=== PATIENT | female | born 1990 | race African-American/Black ===

== ENCOUNTER 2017-12-21 14:21 | Emergency (ER) | payer MEDICAID ==
--- NOTE | 2017-12-21 15:25 | ER Document Report ---
ED Medical Screen (RME) - General Chief Complaint: Vaginal Bleeding Stated Complaint: VAGINAL BLEEDING Time Seen by Provider: 12/21/17 15:09 Mode of Arrival: Ambulatory Information source: Patient Notes: 27-year-old female presents emergency department with 4-day history of suprapubic cramping. She states that she is having increased urgency, increased frequency. Patient denies any dysuria. She states that she is starting to have some lower back pain. Patient is also concerned she may be . Patient states that she had vaginal bleeding last week. She states that this was an abnormal time in her cycle. Patient denies any nausea, vomiting, diarrhea, constipation, fever, chills. I have greeted and performed a rapid initial assessment of this patient. A comprehensive ED assessment and evaluation of the patient, analysis of test results and completion of the medical decision making process will be conducted by additional ED providers. PHYSICAL EXAMINATION: GENERAL: Well-appearing, well-nourished and in no acute distress. HEAD: Atraumatic, normocephalic. EYES: Pupils equal round extraocular movements intact, conjunctiva are normal. ENT: Nares patent NECK: Normal range of motion LUNGS: No respiratory distress Musculoskeletal: Normal range of motion NEUROLOGICAL: Normal speech, normal gait. PSYCH: Normal mood, normal affect. SKIN: Warm, Dry, normal turgor, no rashes or lesions noted. TRAVEL OUTSIDE OF THE [place] IN LAST 30 DAYS: No - Related Data Allergies/Adverse Reactions: No Known Allergies Allergy (Unverified 12/21/17 14:25) Physical Exam - Vital signs Vitals: Temp Pulse Resp BP Pulse Ox 99.2 F 89 16 103/74 100 12/21/17 14:27 12/21/17 14:27 12/21/17 14:27 12/21/17 14:27 12/21/17 14:27 Course - Vital Signs Vital signs: Temp Pulse Resp BP Pulse Ox 99.2 F 89 16 103/74 100 12/21/17 14:27 12/21/17 14:27 12/21/17 14:27 12/21/17 14:27 12/21/17 14:27
[2017-12-21 15:45] LABS: APPEARANCE,URINE SLIGHTLY-CLOUDY; BILIRUBIN,URINE NEGATIVE (NEGATIVE); COLOR,URINE YELLOW; GLUCOSE, URINE NEGATIVE (NEGATIVE); KETONES,URINE NEGATIVE (NEGATIVE); LEUKOCYTE ESTERASE,URINE NEGATIVE (NEGATIVE); NITRITE,URINE NEGATIVE (NEGATIVE); PROTEIN,URINE NEGATIVE (NEGATIVE); URINE SPECIFIC GRAVITY 1.027
--- NOTE | 2017-12-21 15:54 | ER Document Report ---
ED General - General Chief Complaint: Vaginal Bleeding Stated Complaint: VAGINAL BLEEDING Time Seen by Provider: 12/21/17 15:09 Mode of Arrival: Ambulatory TRAVEL OUTSIDE OF THE [place] IN LAST 30 DAYS: No - HPI Notes: Patient is a 27-year-old female with prev 10 years ago who presents to the ED complaining of an episode of vaginal bleeding for 3 days last week and having lower pelvic discomfort intermittently with nausea no vomiting over the last several days as well. Denies any drug allergies. Patient states that she has had some increase in urinary frequency, but no discomfort. She has not had any other vaginal odor or discharge and has no concerns of STD or STI's. Patient is not sure if she is . Denies any headache, fever, URI, sore throat, chest pain, palpitations, syncope, cough, shortness of breath, wheeze, dyspnea, current nausea/vomiting/diarrhea, urinary retention, dysuria, hematuria, back pain, loss of control of bowel or bladder, numbness/tingling, saddle anesthesia, muscle paralysis/weakness, or rash. - Related Data Allergies/Adverse Reactions: No Known Allergies Allergy (Unverified 12/21/17 14:25) Past Medical History - General Information source: Patient - Social History Smoking Status: Unknown if Ever Smoked Family History: Reviewed & Not Pertinent Patient has suicidal ideation: No Patient has homicidal ideation: No Renal/ Medical History: Denies: Hx Peritoneal Dialysis Review of Systems - Review of Systems -: Yes All other systems reviewed and negative Physical Exam - Vital signs Vitals: Temp Pulse Resp BP Pulse Ox 99.2 F 89 16 103/74 100 12/21/17 14:27 12/21/17 14:27 12/21/17 14:27 12/21/17 14:27 12/21/17 14:27 - Notes Notes: PHYSICAL EXAMINATION: GENERAL: Well-appearing, well-nourished and in no acute distress. LUNGS: Breath sounds clear to auscultation bilaterally and equal. No wheezes rales or rhonchi. HEART: Regular rate and rhythm without murmurs, rubs, gallops. ABDOMEN: Soft, nondistended abdomen. No guarding, no rebound. No masses appreciated. Normal bowel sounds present. No CVA tenderness bilaterally. + mild lower pelvic tenderness to palp. Musculoskeletal: FROM to passive/active. Strength 5+/5. Extremities: No cyanosis, clubbing, or edema b/l. Peripheral pulses 2+. Capillary refill less than 3 seconds. NEUROLOGICAL: Normal speech, normal gait. PSYCH: Normal mood, normal affect. SKIN: Warm, Dry, normal turgor, no rashes or lesions noted. Course - Re-evaluation Re-evalutation: 12/21/17 15:55 Urine HCG + We will obtain further labs and imaging to further evaluate. 12/21/17 17:47 Patient is an afebrile, well-hydrated, 27-year-old female who presents to the ED with an intrauterine . Vitals are acceptable without any significant tachycardia, tachypnea, or hypoxia. PE is otherwise unremarkable. CBC, CMP unremarkable for acute pathology. UA unremarkable. HCG appropriate. TVUS shows IUP approx 6wk 6day with HR of 141. No subchorionic hemorrhage with closed cervix. Patient is nontoxic-appearing is tolerating p.o. without any difficulties. No other labs or imaging warranted at this time based on H&P. Low suspicion/risk for acute appendicitis, bowel obstruction, acute cholecystitis, acute cholangitis, perforated diverticulitis, incarcerated hernia , pancreatitis, perforated ulcer, peritonitis, sepsis, pelvic inflammatory disease, ectopic , tubo-ovarian abscess, ovarian torsion, or other systemic emergent condition at this time. Patient is aware that her condition can change from initial presentation and she needs to monitor symptoms closely and seek medical attention if any acute changes. Rx for zofran. Conservative measures otherwise for symptoms. Recheck with your PCM/OBGYN in 3-5 days. Return to the ED with any worsening/concerning symptoms otherwise as reviewed in discharge. Patient is in agreement. - Vital Signs Vital signs: Temp Pulse Resp BP Pulse Ox 99.2 F 89 16 103/74 100 12/21/17 14:27 12/21/17 14:27 12/21/17 14:27 12/21/17 14:27 12/21/17 14:27 - Laboratory Result Diagrams: 12/21/17 15:57 12/21/17 15:57 Laboratory results interpreted by me: 12/21/17 12/21/17 12/21/17 15:28 15:57 15:57 Hct 35.0 L RDW 14.4 H Beta HCG, Quant 76304.00 H Urine Urobilinogen 2.0 H Urine HCG, Qual POSITIVE H Discharge - Discharge Clinical Impression: Early stage of Condition: Stable Disposition: HOME, SELF-CARE Instructions: ([facility]) Additional Instructions: Maintain fluid intake Proper hygienic technique Keep the skin clean Tylenol as needed F/u with your PCM/OBGYN in 3-5 days for a recheck Return to the ED with any development of MITCHELL/fever, trouble with vision, eye redness, worsening pain, urethral discharge, urinary retention, blood in the urine, flank pain, abdominal pain, n/v, Chest Pain, shortness of breath, joint pains, trouble breathing, or any other worsening/concerning symptoms as needed otherwise. Prescriptions: Ondansetron [Zofran Odt 4 mg Tablet] 1 - 2 tab PO Q4H PRN #15 tab.rapdis PRN Reason: For Nausea/Vomiting Referrals: [facility] [Provider Group] - Follow up in 3-5 days
[2017-12-21 16:09] LABS: ABSOLUTE EOSINOPHILS # (AUTO) 0.1 10^3/uL (0.0-0.6); ABSOLUTE LYMPHOCYTES (AUTO) 2.2 10^3/uL (0.5-4.7); ABSOLUTE MONOCYTES (AUTO) 0.3 10^3/uL (0.1-1.4); ABSOLUTE NEUT (AUTO) 2.8 10^3/uL (1.7-8.2); BASOPHILS % (AUTO) 0.3 % (0-2); EOSINOPHILS % (AUTO) 1.6 % (0-6); LYMPHOCYTES % (AUTO) 40.2 % (13-45); MEAN CORPUSCULAR HEMOGLOBIN 29.2 pg (27.0-33.4); MEAN CORPUSCULAR HGB CONC 34.3 g/dL (32.0-36.0); MEAN CORPUSCULAR VOLUME 85 fl (80-97); PLATELET COUNT 236 10^3/uL (150-450); RED BLOOD COUNT 4.11 10^6/uL (3.72-5.28); RED CELL DISTRIBUTION WIDTH 14.4 % (11.5-14.0); SEGMENTED NEUTROPHILS % (AUTO) 51.9 % (42-78); TOTAL CELLS COUNTED % (AUTO) 100 %; WHITE BLOOD COUNT 5.5 10^3/uL (4.0-10.5)
[2017-12-21 16:34] LABS: ALANINE AMINOTRANSFERASE 16 U/L (9-52); ALBUMIN 4.2 g/dL (3.5-5.0); ALKALINE PHOSPHATASE 49 U/L (38-126); ANION GAP 13 (5-19); ASPARTATE AMINO TRANSFERASE 16 U/L (14-36); BILIRUBIN,DIRECT 0.1 mg/dL (0.0-0.4); BILIRUBIN,TOTAL 0.4 mg/dL (0.2-1.3); BLOOD UREA NITROGEN 13 mg/dL (7-20); CALCIUM 9.6 mg/dL (8.4-10.2); CARBON DIOXIDE 23 mmol/L (22-30); CHLORIDE 104 mmol/L (98-107); GLUCOSE 76 mg/dL (75-110); POTASSIUM 4.1 mmol/L (3.6-5.0); SODIUM 139.9 mmol/L (137-145)
--- NOTE | 2017-12-21 17:21 | RADIOLOGY REPORT (SQ) ---
EXAM DESCRIPTION: U/S OB TRANSVAG W/DOPPLER COMPLETED DATE/TIME: 12/21/2017 5:04 pm REASON FOR STUDY: early in early COMPARISON: None. TECHNIQUE: Transvaginal static and realtime grayscale images acquired of the pelvis. Additional chloe cted spectral and color Doppler images recorded. All images stored on PACs. bHCG: Pending. CLINICAL DATES: Not Available. LIMITATIONS: None. FINDINGS: FETUS: Single Living intrauterine . Yolk sac present. ULTRASOUND EGA: 6 weeks 6 days ULTRASOUND JABIER: 08/11/2018 EFW: Not applicable less than 20 weeks. CRL: 9 mm FHR: 141 beats per minute. SURVEY: No visualized anomalies. AMNIOTIC FLUID: Adequate amount. PLACENTA: Not yet developed due to early gestation. SUBCHORIONIC BLEED: No. SIZE OF BLEED: Not applicable. UTERUS: No masses. No anomalies. CERVICAL LENGTH:Closed. RIGHT ADNEXA: 1.5 cm luteal cyst. Normal vascular flow. No adnexal free fluid. No adnexal masses. LEFT ADNEXA: Ovary not identified due to poor acoustical window. No adnexal free fluid. No adnexal masses. FREE FLUID: None. OTHER: No other significant finding. IMPRESSION: LIVING INTRAUTERINE . EGA 6 weeks 6 days Trimester of : First - 0 to 13 weeks. TECHNICAL DOCUMENTATION: JOB ID: [id number] [employer]- All Rights Reserved Reading location - IP/workstation name: [email or web address]
[2017-12-21 18:14] VITALS: BP 108/63
== END 2017-12-21 18:10 | disposition home or self-care (01) ==
LOC: ER 14:21
DX: O26.891 Other specified pregnancy related conditions, first trimester (principal); R10.2 Pelvic and perineal pain; R11.0 Nausea; R35.0 Frequency of micturition; Z3A.01 Less than 8 weeks gestation of pregnancy
CPT/HCPCS: 36415; 76817; 80053; 81001; 81025; 84702; 85025; 86900; 86901; 93976; 99284

== ENCOUNTER 2018-05-06 18:06 | Outpatient (CLI) | payer MEDICAID ==
[2018-05-06 18:58] LABS: APPEARANCE,URINE CLEAR; BILIRUBIN,URINE NEGATIVE (NEGATIVE); COLOR,URINE STRAW; GLUCOSE, URINE NEGATIVE (NEGATIVE); KETONES,URINE NEGATIVE (NEGATIVE); LEUKOCYTE ESTERASE,URINE NEGATIVE (NEGATIVE); NITRITE,URINE NEGATIVE (NEGATIVE); PROTEIN,URINE NEGATIVE (NEGATIVE); URINE SPECIFIC GRAVITY 1.002; UROBILINOGEN,URINE NEGATIVE mg/dL (<2.0)
[2018-05-06 20:45] LABS: URINE AMPHETAMINES SCREEN NEGATIVE; URINE BARBITURATES SCREEN NEGATIVE; URINE BENZODIAZEPINES SCREEN NEGATIVE; URINE COCAINE SCREEN NEGATIVE; URINE MARIJUANA (THC) SCREEN NEGATIVE; URINE METHADONE SCREEN NEGATIVE; URINE PHENCYCLIDINE SCREEN NEGATIVE
== END 2018-05-06 19:06 | disposition home or self-care (01) ==
LOC: LC 18:06
PROVIDERS: ATTEND Obstetrics & Gynecology
PROC: 4A1HXCZ Monitoring of Products of Conception, Cardiac Rate, External Approach (ICD-10-PCS; principal; 2018-05-06)
DX: O47.02 False labor before 37 completed weeks of gestation, second trimester (principal); Z3A.26 26 weeks gestation of pregnancy
CPT/HCPCS: 80307; 81001

== ENCOUNTER 2018-08-07 05:40 | Inpatient (IN) | payer MEDICAID ==
[2018-08-07] MEDS ORDERED: CEFAZOLIN 2 GM/D5W RTU 2 GM/50 ML RTUPB IV ONE (06:15)
[2018-08-07] MEDS ORDERED: RINGERS SOLUTION,LACTATED 1,000 ML IV ONE (06:15)
[2018-08-07 06:22] LABS: ABSOLUTE EOSINOPHILS # (AUTO) 0.1 10^3/uL (0.0-0.6); ABSOLUTE LYMPHOCYTES (AUTO) 2.2 10^3/uL (0.5-4.7); ABSOLUTE MONOCYTES (AUTO) 0.5 10^3/uL (0.1-1.4); ABSOLUTE NEUT (AUTO) 5.6 10^3/uL (1.7-8.2); BASOPHILS % (AUTO) 0.2 % (0-2); EOSINOPHILS % (AUTO) 0.9 % (0-6); HEMATOCRIT 32.1 % (36.0-47.0); HEMOGLOBIN 10.9 g/dL (12.0-15.5); LYMPHOCYTES % (AUTO) 26.5 % (13-45); MEAN CORPUSCULAR HEMOGLOBIN 28.6 pg (27.0-33.4); MEAN CORPUSCULAR VOLUME 84 fl (80-97); MONOCYTES % (AUTO) 5.7 % (3-13); PLATELET COUNT 188 10^3/uL (150-450); RED BLOOD COUNT 3.83 10^6/uL (3.72-5.28); RED CELL DISTRIBUTION WIDTH 14.9 % (11.5-14.0); SEGMENTED NEUTROPHILS % (AUTO) 66.7 % (42-78); TOTAL CELLS COUNTED % (AUTO) 100 %; WHITE BLOOD COUNT 8.5 10^3/uL (4.0-10.5)
[2018-08-07] MEDS: RINGERS SOLUTION,LACTATED 1,000 ML IV PRN ×2 (06:44→11:59)
[2018-08-07 07:04] LABS: APPEARANCE,URINE SLIGHTLY-CLOUDY; BILIRUBIN,URINE NEGATIVE (NEGATIVE); COLOR,URINE YELLOW; GLUCOSE, URINE NEGATIVE (NEGATIVE); KETONES,URINE NEGATIVE (NEGATIVE); LEUKOCYTE ESTERASE,URINE NEGATIVE (NEGATIVE); NITRITE,URINE NEGATIVE (NEGATIVE); PROTEIN,URINE 30 mg/dL (NEGATIVE); URINE SPECIFIC GRAVITY 1.023
[2018-08-07 07:13] LABS: URINE AMPHETAMINES SCREEN NEGATIVE; URINE BARBITURATES SCREEN NEGATIVE; URINE BENZODIAZEPINES SCREEN NEGATIVE; URINE COCAINE SCREEN NEGATIVE; URINE MARIJUANA (THC) SCREEN NEGATIVE; URINE METHADONE SCREEN NEGATIVE; URINE PHENCYCLIDINE SCREEN NEGATIVE
[2018-08-07] MEDS ORDERED: MIDAZOLAM 2 MG/2 ML INJ ONE (07:51)
[2018-08-07] MEDS ORDERED: OXYTOCIN 10 UNIT/ML VIAL ONE ×2 (07:51→10:39)
[2018-08-07] MEDS ORDERED: ACETAMINOPHEN 1,000 MG/100 ML RTUPB IV ONE (07:51)
[2018-08-07] MEDS ORDERED: FENTANYL CITRATE INJ/PF 100 MCG/2 ML AMPUL ONE (07:51)
[2018-08-07] MEDS ORDERED: ONDANSETRON HCL INJ/PF 4 MG/2 ML SDV ONE (07:51)
[2018-08-07] MEDS ORDERED: EPHEDRINE SULFATE INJ 50 MG/1 ML AMPULE ONE (07:51)
[2018-08-07] MEDS ORDERED: OXYTOCIN/NORMAL SALINE 20 UNIT/1,000 ML RTUINJ ONE ×2 (07:51→10:39)
[2018-08-07] MEDS ORDERED: KETOROLAC TROMETHAMINE INJ/PF 30 MG/1 ML SDV ONE (07:51)
[2018-08-07] MEDS ORDERED: DIPHENHYDRAMINE HCL 50 MG/ML VIAL IV PRN (08:35)
[2018-08-07] MEDS ORDERED: MEPERIDINE HCL/PF INJ 25 MG/1 ML DISP.SYRIN IV PRN (08:35)
[2018-08-07] MEDS ORDERED: PROMETHAZINE HCL INJ 25 MG/1 ML VIAL IV PRN ×3 (08:35→09:24)
[2018-08-07] MEDS ORDERED: ONDANSETRON HCL INJ/PF 4 MG/2 ML SDV IV PRN (08:35)
[2018-08-07] MEDS ORDERED: OXYCODONE-ACETAMINOPHEN 5-325 MG TABLET PO PRN ×3 (08:35→09:24)
[2018-08-07] MEDS ORDERED: FENTANYL CITRATE INJ/PF 100 MCG/2 ML AMPUL IV PRN ×3 (08:35)
[2018-08-07] MEDS ORDERED: HYDROMORPHONE HCL INJ/PF 2 MG/ML AMPULE IV PRN (09:24)
[2018-08-07] MEDS ORDERED: ACETAMINOPHEN 1,000 MG/100 ML RTUPB IV PRN (09:24)
[2018-08-07] MEDS ORDERED: MEASLES,MUMPS&RUBELLA VACC/PF 0.5 ML VIAL SUBCUT PRN (09:24)
[2018-08-07] MEDS ORDERED: OXYTOCIN/NORMAL SALINE 20 UNIT/1,000 ML RTUINJ IV PRN (09:24)
[2018-08-07] MEDS ORDERED: DIPH/PERTUSS(ACELL)/TETANUS VAC/PF 0.5 ML SYR (>=10YO) IM PRN (09:24)
[2018-08-07] MEDS ORDERED: ACETAMINOPHEN 325 MG TABLET PO PRN (09:24)
--- NOTE | 2018-08-07 09:38 | PDOC DELIVERY SUMMARY ---
Delivery Summary - Maternal Hx : V Hx Para: III Hx # Term Pregnancies: 2 Hx # Pregnancies: 1 Hx Total # of Abortions (Sponateous & Elective): 1 Number of Living Children: 3 JABIER: 08/10/18 Gestational Age: 39+4 Risk Factors: Previous , Other - Limited care Ruptured Membranes: AROM Time of Rupture: 08:27 Fluids: Clear - Delivery Labor: Not In Labor Presentation: Vertex Heart Rate Monitoring: Done Pre-Operatively Uterine Contraction Monitoring: External Support Person Present: Yes Location: OR : Scheduled Placenta: Within Normal Limits Placenta Description: normal Number of Vessels (Cord): 3 Nuchal Cord: Yes Delivery of Placenta Date: 08/07/18 Delivery of Placenta Time: 08:28 - Medications Type of Anesthesia:: Spinal - Assess and Care Baby 1 Male Delivery of Date: 08/07/18 Delivery of Infant Time: 08:27 at 1 minute: 7 at 5 minutes: 8 Preprinted Number On Band: [id number] Infant Skin to Skin: No Skin to Skin (Mins): 0 Condition: to NICU To Nursery At: 08:37 Mode of Transport: Bassinet - Delivery Personnel Enrolled Nurse: JANNET WHITEHEAD RN: ROSALIA HOPKINS RN: MAYDA PINTO RN: MIRANDA HU MD: BHARATI BLEVINS
[2018-08-07] MEDS ORDERED: OXYCODONE-ACETAMINOPHEN 5-325 MG TABLET ONE (10:08)
--- NOTE | 2018-08-07 10:13 | Brief Operative Note ---
BRIEF OPERATIVE REPORT DATE OF SURGERY: 08/07/18 TIME OF SURGERY: 08:00 PREOPERATIVE DIAGNOSIS: 39+4ega, H/o Cesaeran section x 3, Limited care, late to care at 34wks, H/o PPD, Chlamydia on 07/17, Anemia POSTOPERATIVE DIAGNOSIS: MICHELE - delivered, right ovarian cyst SURGEON: BHARATI BLEVINS FINDINGS: VMI delivered at 0827, 08/07/2018, weight 8#2oz, 3695g. Significant pelvic adhesive with omentum scarred to anterior abdominal wall and uterus. Lower uterine segment where prior scar is very thin. Low transverse incision made above the prior lower uterine segment scars. Fascia is very thin and poor integrity likely secondary to multiple prior surgeries and pregnancies. IVF 1500ml, UOP 100ml COMPLICATIONS: None ESTIMATED BLOOD LOSS: 796 TISSUE REMOVED OR ALTERED: placenta and cord not sent to pathology, right ovarian cyst removed and sent for pathology TECHNICAL PROCEDURE: Repeat section, Right ovarian cystectomy
--- NOTE | 2018-08-07 10:19 | Operative Report ---
Operative Report DATE OF SURGERY: 08/07/18 PREOPERATIVE DIAGNOSIS: 39+4ega, H/o Cesaeran section x 3, Limited car e, late to care at 34wks, H/o PPD, Chlamydia on 07/17, Anemia POSTOPERATIVE DIAGNOSIS: MICHELE - delivered, right ovarian cyst OPERATION: Repeat section, Right ovarian cystectomy SURGEON: BHARATI BLEVINS ANESTHESIA: Spinal TISSUE REMOVED OR ALTERED: placenta and cord not sent to pathology, right ovarian cyst removed and sent for pathology COMPLICATIONS: uterine atony in the PACU ESTIMATED BLOOD LOSS: 796 INTRAOPERATIVE FINDINGS: VMI delivered at 08, 08/07/2018, weight 8#2oz, 3695g. Significant pelvic adhesive with omentum scarred to anterior abdominal wall and uterus. Lower uterine segment where prior scar is very thin. Low transverse incision made above the prior lower uterine segment scars. Fascia is very thin and poor integrity likely secondary to multiple prior surgeries and pregnancies. IVF 1500ml, UOP 100ml PROCEDURE: Anesthesia provider: [Karthik Devine CRNA, MD] Urine output: [100ml] IV fluids: [1500ml] Indications: [28yo at 39+4ega presents for scheduled section. She reported in the office that she desires Bilateral tubal ligation. However, upon interview prior to the OR she declines tubal ligation. Reviewed with patient extensively the risks of continued pregnancies now after 4 sections including maternal/ morbidity and mortality, abruption, uterine rupture, of mom/baby, hysterectomy, blood transfusion. She reports that she desires to take COCPs for contraception. The risks, benefits, alternatives were reviewed and she desires to proceed for planned procedure. In the PACU the patient began having uterine atony with addition 187ml of QBL and required cytotec 1000mcg MN and 20units added to pitocin infusion.] Procedure: The patient was taken to the operating room where spinal anesthesia was obtained and found to be adequate. She was then prepped and draped in the normal sterile fashion and placed in the dorsal supine position with a leftward tilt. A Pfannenstiel skin incision was then made and carried through to the underlying layers of the fascia with the scalpel. The fascia was incised in the midline and the incision extended laterally with the Sauceda scissors. The superior aspect of the fascial incision was then grasped with nigel clamps elevated and the underlying rectus muscles dissected off [bluntly]. Attention was then turned to the inferior aspect of the fascial incision which in a similar fashion was grasped, tented up with Nigel clamps, and the rectus muscles dissected off [bluntly]. The rectus muscles were then in the midline and the peritoneum at the amount identified and entered [bluntly]. The peritoneal incision was then extended superiorly and inferiorly with good visualization of the bladder. The bladder blade was inserted and the vesicouterine peritoneum identified grasped with Anguillan pickups and entered sharply with the Metzenbaum scissors. This incision was then extended laterally with the Metzenbaum scissors and a bladder flap created digitally. The bladder blade was then reinserted and the lower uterine segment incised in a transverse fashion with the scalpel. The uterine incision was then extended bluntly. The bladder blade was removed and the infant's head was delivered from cephalic presentation atraumatically. The nose and mouth were suctioned and the cord doubly clamped and cut. And the was handed off to waiting pediatricians. The placenta was then delivered spontaneously and the uterus exteriorized and cleared of all clots and debris. The uterine incision was then repaired with 1- 0 Vicryl in a running locked fashion. A second layer of the same suture was used to obtain hemostasis via imbrication of the initial layer. The bladder flap was then repaired with 3-0 chromic in a running fashion. The right ovary overlying the apprimately 1-2cm ovarian cyst was incised and the cyst which had initially palpated to be an ovarian dermoid or fibroma was removed and will be s ent to pathology. 3-0 vicry was used to oversew the ovary at the site of cyst removal and surgicel was used for hemostasis. The uterus was returned to the patient's abdomen and surgicel was placed for additional hemostasis and Interceed was placed overlying the uterine incision to prevent adhesions. The gutters were cleared of all clots and debris. All operative sites were noted to be hemostatic. The fascia was reapproximated with 0 Vicryl in a running fashion from each lateral edge to the midline. The skin was closed with 3-0 Monocryl in a running subcuticular fashion with overlying Dermabond for additional dressing as well as wound closure. The patient tolerated the procedure well. Sponge lap needle and instrument counts are correct times 2. 2 g of Ancef were given prior to skin incision. The patient was taken to the recovery area awake and in stable condition.
[2018-08-07] MEDS ORDERED: MISOPROSTOL 0.2 MG TABLET PR ONE (10:36)
[2018-08-07] MEDS ORDERED: MISOPROSTOL 0.2 MG TABLET ONE (10:37)
[2018-08-07] MEDS ORDERED: HYDROMORPHONE HCL INJ/PF 2 MG/ML AMPULE ONE (10:48)
[2018-08-07 11:00] LABS: CHLAM PCR DETECTED (NOT DETECT)
[2018-08-07 12:27] LABS: ABSOLUTE MONOCYTES (AUTO) 0.2 10^3/uL (0.1-1.4); ABSOLUTE NEUT (AUTO) 12.4 10^3/uL (1.7-8.2); HEMATOCRIT 33.7 % (36.0-47.0); HEMOGLOBIN 11.2 g/dL (12.0-15.5); LYMPHOCYTES % (AUTO) 7.7 % (13-45); MEAN CORPUSCULAR HEMOGLOBIN 28.1 pg (27.0-33.4); MEAN CORPUSCULAR HGB CONC 33.3 g/dL (32.0-36.0); MEAN CORPUSCULAR VOLUME 85 fl (80-97); MONOCYTES % (AUTO) 1.6 % (3-13); PLATELET COUNT 195 10^3/uL (150-450); RED BLOOD COUNT 3.99 10^6/uL (3.72-5.28); RED CELL DISTRIBUTION WIDTH 14.5 % (11.5-14.0); SEGMENTED NEUTROPHILS % (AUTO) 90.7 % (42-78); TOTAL CELLS COUNTED % (AUTO) 100 %; WHITE BLOOD COUNT 13.7 10^3/uL (4.0-10.5)
[2018-08-07 12:31] LABS: INTERNATIONAL RATION (INR) 0.87; PROTHROMBIN TIME 12.3 SEC (11.4-15.4)
[2018-08-07 12:32] LABS: FIBRINOGEN 437 mg/dL (209-497); PARTIAL THROMBOPLASTIN TIME 25.7 SEC (23.5-35.8)
[2018-08-07] MEDS ORDERED: AZITHROMYCIN INJ 500 MG VIAL IV ONE (12:38)
[2018-08-07 12:55] LABS: ALANINE AMINOTRANSFERASE 16 U/L (9-52); ALBUMIN 3.1 g/dL (3.5-5.0); ALKALINE PHOSPHATASE 217 U/L (38-126); ANION GAP 7 (5-19); ASPARTATE AMINO TRANSFERASE 24 U/L (14-36); BILIRUBIN,DIRECT 0.2 mg/dL (0.0-0.4); BILIRUBIN,TOTAL 0.4 mg/dL (0.2-1.3); BLOOD UREA NITROGEN 6 mg/dL (7-20); CALCIUM 8.8 mg/dL (8.4-10.2); CARBON DIOXIDE 23 mmol/L (22-30); CHLORIDE 106 mmol/L (98-107); GLUCOSE 83 mg/dL (75-110); POTASSIUM 4.2 mmol/L (3.6-5.0); SODIUM 135.6 mmol/L (137-145); TOTAL PROTEIN 5.9 g/dL (6.3-8.2)
[2018-08-07] MEDS ORDERED: KETOROLAC TROMETHAMINE INJ/PF 30 MG/1 ML SDV IV SCH (14:00)
[2018-08-07] MEDS ORDERED: AZITHROMYCIN 500 MG in DEXTROSE 5%-WATER 250 ML IV ONE (14:00)
[2018-08-07] MEDS: PRENATAL VITAMIN W DHA CAPSULE PO SCH (14:01)
[2018-08-07] MEDS: FAMOTIDINE 20 MG TABLET PO SCH ×2 (14:01→17:02)
[2018-08-07] MEDS: DOCUSATE SODIUM 100 MG CAPSULE PO SCH ×2 (14:01→17:02)
[2018-08-07] MEDS ORDERED: DEXAMETHASONE SOD PHOSPHATE INJ 4 MG/1 ML VIAL ONE (14:05)
[2018-08-07] MEDS ORDERED: PHENYLEPHRINE HCL INJ/PF 10 MG/1 ML SDV ONE (14:05)
[2018-08-07] MEDS: KETOROLAC TROMETHAMINE INJ/PF 30 MG/1 ML SDV IV SCH (17:02)
[2018-08-07] MEDS: OXYCODONE-ACETAMINOPHEN 5-325 MG TABLET PO PRN ×2 (17:02→21:13)
[2018-08-07] MEDS: SIMETHICONE 80 MG TAB.CHEW PO PRN (22:24)
[2018-08-08] MEDS: KETOROLAC TROMETHAMINE INJ/PF 30 MG/1 ML SDV IV SCH (01:03)
[2018-08-08] MEDS: IBUPROFEN 800 MG TABLET PO SCH ×4 (01:03→18:29)
[2018-08-08 06:35] LABS: HEMATOCRIT 25.5 % (36.0-47.0); MEAN CORPUSCULAR HEMOGLOBIN 28.5 pg (27.0-33.4); MEAN CORPUSCULAR HGB CONC 34.3 g/dL (32.0-36.0); MEAN CORPUSCULAR VOLUME 83 fl (80-97); PLATELET COUNT 171 10^3/uL (150-450); RED BLOOD COUNT 3.06 10^6/uL (3.72-5.28); RED CELL DISTRIBUTION WIDTH 14.1 % (11.5-14.0); WHITE BLOOD COUNT 12.1 10^3/uL (4.0-10.5)
[2018-08-08] MEDS: SIMETHICONE 80 MG TAB.CHEW PO PRN ×3 (06:41→21:50)
[2018-08-08 06:45] LABS: HEMOGLOBIN 8.7 g/dL (12.0-15.5)
[2018-08-08] MEDS: OXYCODONE-ACETAMINOPHEN 5-325 MG TABLET PO PRN ×4 (06:49→21:50)
[2018-08-08] MEDS: FAMOTIDINE 20 MG TABLET PO SCH ×2 (09:57→18:29)
[2018-08-08] MEDS: DOCUSATE SODIUM 100 MG CAPSULE PO SCH ×2 (09:57→18:29)
[2018-08-08] MEDS: PRENATAL VITAMIN W DHA CAPSULE PO SCH (09:57)
--- NOTE | 2018-08-08 11:04 | PDOC PROGRESS REPORT ---
Subjective-OB Progress Note for:: 08/08/18 Subjective: pt sleeping on rounds, drowsy, pain under control, Man friend at BS, asking about AM lab work, eating and taking liquids well Physical Exam (OB) Vital Signs: Temp Pulse Resp BP Pulse Ox 98.1 F 81 14 112/68 97 08/08/18 10:06 08/08/18 10:06 08/08/18 10:06 08/08/18 10:06 08/08/18 10:06 Intake & Output 08/07/18 08/08/18 08/09/18 06:59 06:59 06:59 Intake Total 4481 Output Total 1900 Balance 2581 Weight 72.121 kg - PIH/Pre-Eclampsia Clonus: Negative Headache: Absent Epigastric Pain: No Visual Changes: No - Dressing Removed: - na Closure Type: Surgical Glue - Lochia Lochia Amount: Scant < 10 ml Lochia Color: Rubra/Red - Abdomen Description: Tender, Soft, Round, Distended Hernia Present: No Fundal Description: Firm, Midline Describe if Not Midline: Pt refused fundal massage r/t pain Fundal Height: u/u - u/2 Objective-Diagnostic Laboratory: 08/08/18 06:19 08/07/18 12:03 08/07/18 08/07/18 08/08/18 12:03 12:03 06:19 WBC 13.7 H 12.1 H RBC 3.99 3.06 L Hgb 11.2 L 8.7 L D Hct 33.7 L 25.5 L MCV 85 83 MCH 28.1 28.5 MCHC 33.3 34.3 RDW 14.5 H 14.1 H Plt Count 195 171 Seg Neutrophils % 90.7 H Lymphocytes % 7.7 L Monocytes % 1.6 L Eosinophils % 0.0 Basophils % 0.0 Absolute Neutrophils 12.4 H Absolute Lymphocytes 1.0 Absolute Monocytes 0.2 Absolute Eosinophils 0.0 Absolute Basophils 0.0 Sodium 135.6 L Potassium 4.2 Chloride 106 Carbon Dioxide 23 Anion Gap 7 BUN 6 L Creatinine 0.59 Est GFR ( Amer) > 60 Est GFR (Non-Af Amer) > 60 Glucose 83 Calcium 8.8 Total Bilirubin 0.4 AST 24 ALT 16 Alkaline Phosphatase 217 H Total Protein 5.9 L Albumin 3.1 L Assessment and Plan(PN) - Assessment and Plan (1) hemorrhage, delivered, current hospitalization Is this a current diagnosis for this admission?: Yes (2) Chlamydia infection affecting Qualifiers: Trimester: unspecified trimester Qualified Code(s): O98.819 - Other maternal infectious and parasitic diseases complicating , unspecified trimester; A74.9 - Chlamydial infection, unspecified Is this a current diagnosis for this admission?: Yes (3) Limited care Qualifiers: Trimester: unspecified trimester Qualified Code(s): O09.30 - Supervision of with insufficient care, unspecified trimester Is this a current diagnosis for this admission?: Yes (4) Nuchal cord affecting delivery Is this a current diagnosis for this admission?: Yes (5) S/P repeat low transverse Is this a current diagnosis for this admission?: Yes - Time Spent with Patient Time with patient: Less than 15 minutes Medications reviewed and adjusted accordingly: Yes - Disposition Anticipated Discharge: Home Within: within 24 hours
[2018-08-09] MEDS: IBUPROFEN 800 MG TABLET PO SCH ×4 (00:03→17:00)
[2018-08-09] MEDS: SIMETHICONE 80 MG TAB.CHEW PO PRN ×2 (07:58→17:00)
[2018-08-09] MEDS: OXYCODONE-ACETAMINOPHEN 5-325 MG TABLET PO PRN ×4 (07:58→21:18)
[2018-08-09] MEDS: PRENATAL VITAMIN W DHA CAPSULE PO SCH (10:50)
[2018-08-09] MEDS: FAMOTIDINE 20 MG TABLET PO SCH ×2 (10:50→17:00)
[2018-08-09] MEDS: DOCUSATE SODIUM 100 MG CAPSULE PO SCH ×2 (10:50→17:00)
--- NOTE | 2018-08-09 11:31 | PDOC PROGRESS REPORT ---
Subjective-OB Progress Note for:: 08/09/18 - POD #2, c/o difficulty passing gas, states is able to burp, also c/o tender area just above the umbilicus.A+, Rubella Immune, breast and bottlefeeding, Hx of +chlamydia on admission, tx'd. Physical Exam (OB) Vital Signs: Temp Pulse Resp BP Pulse Ox 98.6 F 80 18 112/68 95 08/09/18 05:09 08/09/18 05:09 08/09/18 05:09 08/09/18 05:09 08/09/18 05:09 Intake & Output 08/08/18 08/09/18 08/10/18 06:59 06:59 06:59 Intake Total 4481 400 Output Total 1900 Balance 2581 400 - General General Appearance: Appears well, Alert In distress: None - PIH/Pre-Eclampsia DTR's: 1 + Clonus: Negative Headache: Absent Epigastric Pain: No Visual Changes: Yes - Pt reports seeing spots at times; managed care specialist informed by charles Junior - Dressing Removed: - na Incision: Well Approximated Closure Type: Surgical Glue - Lochia Lochia Amount: Scant < 10 ml Lochia Color: Rubra/Red - Abdomen Description: Tender, Soft, Round Hernia Present: No Bowel Sounds: Hypoactive Flatus Presence: Absent Fundal Description: Firm, Midline Describe if Not Midline: Pt refuses fundal rub Fundal Height: u/u - u/2 Abdomen Note: Pt having tenderness just above the umbilicus, appears to be a hernia possibly due to diastasis recti. - Respiratory Respiratory Status: No respiratory distress - Abdominal Inspection: Hernia - Genitourinary Genitourinary Note: voiding - Extremities Upper extremity: Normal inspection Lower extremities: Normal inspection - Neurological Cognition: Normal Orientation: AAOx4 - Psychological Associated symptoms: Normal affect, Normal mood - Skin Skin Temperature: Warm Skin Moisture: Dry Objective-Diagnostic Laboratory: 08/08/18 06:19 08/07/18 12:03 Assessment and Plan(PN) - Assessment and Plan (1) Anemia, Is this a current diagnosis for this admission?: Yes (2) Chlamydia infection affecting Qualifiers: Trimester: unspecified trimester Qualified Code(s): O98.819 - Other maternal infectious and parasitic diseases complicating , unspecified trimester; A74.9 - Chlamydial infection, unspecified Is this a current diagnosis for this admission?: Yes (3) History of delivery Is this a current diagnosis for this admission?: Yes (4) Limited care Qualifiers: Trimester: unspecified trimester Qualified Code(s): O09.30 - Supervision of with insufficient care, unspecified trimester Is this a current diagnosis for this admission?: Yes (5) Nuchal cord affecting delivery Is this a current diagnosis for this admission?: Yes (6) hemorrhage, delivered, current hospitalization Is this a current diagnosis for this admission?: Yes (7) S/P repeat low transverse Is this a current diagnosis for this admission?: Yes - Time Spent with Patient Time with patient: 15-25 minutes Medications reviewed and adjusted accordingly: Yes - Disposition Anticipated Discharge: Home Within: within 24 hours - Discussed pt with Dr Scott and ordered a flat plate / KUB to r/o illeus.
--- NOTE | 2018-08-09 12:01 | RADIOLOGY REPORT (SQ) ---
EXAM DESCRIPTION: ABDOMEN 2 VIEWS COMPLETED DATE/TIME: 08/09/2018 11:44 am REASON FOR STUDY: r/o Illeus, POD #2, s/p , slight abd dis COMPARISON: None. NUMBER OF VIEWS: Two views. TECHNIQUE: Supine and erect/decubitus radiographic images of the abdomen acquired. LIMITATIONS: None. FINDINGS: FREE AIR: None. No abnormal gas collections. LUNG BASES: Clear. BOWEL GAS PATTERN: Nonobstructive pattern. No dilated loops or air fluid levels. CALCIFICATIONS: No suspicious calcifications. SOFT TISSUES: No gross mass or suggestion of organomegaly. HARDWARE: None in the abdomen. BONES: No acute fracture. No worrisome bone lesions. OTHER: No other significant finding. IMPRESSION: NO RADIOGRAPHIC EVIDENCE FOR ACUTE ABDOMINAL DISEASE. TECHNICAL DOCUMENTATION: JOB ID: [id number] [employer]- All Rights Reserved Reading location - IP/workstation name: [email or web address]
[2018-08-10] MEDS: IBUPROFEN 800 MG TABLET PO SCH ×3 (00:26→13:56)
[2018-08-10] MEDS: OXYCODONE-ACETAMINOPHEN 5-325 MG TABLET PO PRN ×2 (04:31→10:06)
[2018-08-10 07:23] VITALS: BP 108/64
[2018-08-10] MEDS: FAMOTIDINE 20 MG TABLET PO SCH (10:06)
[2018-08-10] MEDS: PRENATAL VITAMIN W DHA CAPSULE PO SCH (10:07)
[2018-08-10] MEDS: DOCUSATE SODIUM 100 MG CAPSULE PO SCH (10:07)
--- NOTE | 2018-08-10 11:08 | PDOC DISCHARGE SUMMARY ---
Final Diagnosis Discharge Date: 08/10/18 - POD #3, pt doing well, states has now started passing gas. Negative KUB/ flat x-ray yesterday to r/o illeus. +chlamydia on admission, tx'd. A+ Rubella Immune, - Final Diagnosis (1) Anemia, Is this a current diagnosis for this admission?: Yes (2) Chlamydia infection affecting Is this a current diagnosis for this admission?: Yes (3) History of delivery Is this a current diagnosis for this admission?: Yes (4) Limited care Is this a current diagnosis for this admission?: Yes (5) Nuchal cord affecting delivery Is this a current diagnosis for this admission?: Yes (6) hemorrhage, delivered, current hospitalization Is this a current diagnosis for this admission?: Yes (7) S/P repeat low transverse Is this a current diagnosis for this admission?: Yes Discharge Data - Discharge Medication Prescriptions: Ibuprofen [Motrin 800 mg Tablet] 800 mg PO Q6 #60 tablet Oxycodone HCl/Acetaminophen [Percocet 5-325 mg Tablet] 1 tab PO Q4HP PRN #30 tablet PRN Reason: Pain Scale Of 4 Home Medications: No122/Iron/Folic Acid [ Multi Tablet] 1 each PO DAILY 05/06/18 Famotidine [Pepcid 20 mg Tablet] 20 mg PO BID #20 tablet 06/17/18 Ibuprofen [Motrin 800 mg Tablet] 800 mg PO Q6 #60 tablet 08/10/18 Oxycodone HCl/Acetaminophen [Percocet 5-325 mg Tablet] 1 tab PO Q4HP PRN #30 tablet 08/10/18 - Diagnosis Test Laboratory: Temp Pulse Resp BP Pulse Ox 99.7 F 95 18 108/64 98 08/10/18 07:23 08/10/18 07:23 08/10/18 07:23 08/10/18 07:23 08/10/18 07:23 08/07/18 08/07/18 08/07/18 05:50 06:06 12:03 RBC 3.83 3.99 Hgb 10.9 L 11.2 L Hct 32.1 L 33.7 L Urine Opiates Screen NEGATIVE 08/08/18 06:19 RBC 3.06 L Hgb 8.7 L D Hct 25.5 L Urine Opiates Screen - Discharge information/Instructions Discharge Activity: Activity As Tolerated, No Driving, No Lifting Over 10 Pounds, Pelvic Rest Discharge Diet: As Tolerated, Regular Disposition: HOME, SELF-CARE Follow up with: [facility] in: 1, Weeks
[2018-08-10] MEDS ORDERED: FERROUS SULFATE 325 MG TABLET PO SCH (12:00)
== END 2018-08-10 15:20 | disposition home or self-care (01) | DRG 787 ==
LOC: 2S 05:40
PROVIDERS: ADMIT Student in an Organized Health Care Education/Training Program; ATTEND Student in an Organized Health Care Education/Training Program
PROC: 0UB00ZZ Excision of Right Ovary, Open Approach (ICD-10-PCS; 2018-08-07)
PROC: 10D00Z1 Extraction of Products of Conception, Low, Open Approach (ICD-10-PCS; principal; 2018-08-07 07:30)
DX: O34.211 Maternal care for low transverse scar from previous cesarean delivery (principal); O72.1 Other immediate postpartum hemorrhage; O98.32 Other infections with a predominantly sexual mode of transmission complicating childbirth; A56.8 Sexually transmitted chlamydial infection of other sites; O34.83 Maternal care for other abnormalities of pelvic organs, third trimester; N83.11 Corpus luteum cyst of right ovary; O67.9 Intrapartum hemorrhage, unspecified; O69.81X0 Labor and delivery complicated by cord around neck, without compression, not applicable or unspecified; O99.02 Anemia complicating childbirth; D64.9 Anemia, unspecified; O99.334 Smoking (tobacco) complicating childbirth; F17.210 Nicotine dependence, cigarettes, uncomplicated; N85.8 Other specified noninflammatory disorders of uterus; Z3A.39 39 weeks gestation of pregnancy; Z37.0 Single live birth
CPT/HCPCS: 1961; 36415; 74019; 80053; 80307; 81001; 85025; 85027; 85384; 85610; 85730; 86850; 86900; 86901; 87491; 87591; 88305; 94799; C1765; J0131; J0456; J1100; J1170; J1885; J2250; J2370; J2405; J2590; J3010; J3490; J7060; J7120